=== PATIENT | female | born 1995 | race Caucasian/White ===

== ENCOUNTER 2024-10-01 18:20 | Emergency (ER) | payer OTHER ==
[2024-10-01 18:59] LABS: BASO % 0.4 % (0.0-1.0); EOS % 0.5 % (1.0-4.0); HEMATOCRIT 39.6 % (37.0-47.0); MEAN CELL VOLUME 83.9 fl (81.0-99.0); MEAN CORPUSCULAR HGB 28.6 pg (27.0-31.0); MEAN CORPUSCULAR HGB CONC 34.1 g/dl (33.0-37.0); MEAN PLATELET VOLUME 9.5 fl (9.6-12.3); MONO # 0.3 10*3/uL (0.1-1.0); MONO % 5.7 % (3.0-9.0); NEUT % 52.8 % (47.0-73.0); PLATELET COUNT AUTOMATED 243 10*3/uL (130-400); RED BLOOD COUNT 4.72 10*6/uL (4.10-5.10); RED CELL DISTRI WIDTH 11.9 % (0-14.5); WHITE BLOOD COUNT 5.6 10*3/uL (4.8-10.8)
[2024-10-01 19:21] LABS: BUN 12 mg/dl (9-23); CHLORIDE 106 mmol/L (98-107); CPK 69 U/L (34-171); POTASSIUM 3.4 mmol/L (3.4-5.1)
[2024-10-01 19:22] LABS: B-hCG (QUALITATIVE) NEGATIVE (NEGATIVE); ETHYL ALCOHOL < 3.0 mg/dl (<3)
[2024-10-01 19:41] LABS: BILIRUBIN Negative (Negative); BLOOD Negative (Negative); CLARITY Cloudy (Clear); COLOR Dark Yellow (Yellow); GLUCOSE Negative (Negative); KETONE Trace (Negative); LEUKO ESTERASE Negative (Negative); NITRITE Negative (Negative); PH 5.5 (4.5-8.0); SPECIFIC GRAVITY 1.025 (1.001-1.030)
[2024-10-01 19:48] LABS: URINE AMPHETAMINES Positive (1000ng/ml); URINE BARBITURATES Negative (200ng/ml); URINE BENZODIAZEPINES Negative (200ng/ml); URINE CANNABINOIDS (THC) Positive (50ng/ml); URINE COCAINE Negative (300ng/ml); URINE METHADONE Negative (300ng/ml); URINE OPIATES Negative (300ng/ml); URINE PHENCYCLIDINE Negative (25ng/ml)
[2024-10-01 19:52] LABS: BACTERIA 1+; MUCOUS 2+
== END 2024-10-01 20:21 ==
LOC: ED 18:20
PROVIDERS: Emergency Medicine
DX: F32.A Depression, unspecified (principal); Z02.89 Encounter for other administrative examinations; R45.851 Suicidal ideations; Z79.899 Other long term (current) drug therapy

== ENCOUNTER 2025-04-27 14:03 | Emergency (ER) | payer OTHER ==
[~2025-04-27] VITALS: Ht 170.1 cm; Wt 77.1 kg
== END 2025-04-27 14:42 | disposition home or self-care (01) ==
LOC: ED 14:03
DX: R79.9 Abnormal finding of blood chemistry, unspecified (principal); Z88.2 Allergy status to sulfonamides